=== PATIENT | male | born 1995 | race Caucasian/White ===

== ENCOUNTER 2019-08-20 08:33 | Emergency (ER) | payer OTHER ==
[2019-08-20] MEDS ORDERED: TETRACAINE HCL 0.5% OPH SOLN 0.6 ML DROPERETTE OU ONE (09:27)
--- NOTE | 2019-08-20 09:29 | ER Document Report ---
ED Medical Screen (RME) - General Chief Complaint: Eye Problem Stated Complaint: LOSS OF VISION Time Seen by Provider: 08/20/19 09:17 Mode of Arrival: Ambulatory Information source: Patient Notes: Patient presents complaining of left eye pain for the past 5 weeks. Patient reports some blurred vision. 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 Patient does wear contact lenses although states that he has not had them in for some time. I have greeted and performed a rapid initial assessment of this patient. A comprehensive ED assessment and evaluation of the patient, analysis of test results and completion of the medical decision making process will be conducted by additional ED providers. TRAVEL OUTSIDE OF THE [place] IN LAST 30 DAYS: No Past Medical History - Social History Frequency of alcohol use: Occasional Drug Abuse: None Physical Exam - Vital signs Vitals: Temp Pulse Resp BP Pulse Ox 98.2 F 68 16 124/75 98 08/20/19 08:49 08/20/19 08:49 08/20/19 08:49 08/20/19 08:49 08/20/19 08:49 - General Notes: Tearing, positive photophobia, sclera injected bilaterally Course - Vital Signs Vital signs: Temp Pulse Resp BP Pulse Ox 98.2 F 68 16 124/75 98 08/20/19 08:49 08/20/19 08:49 08/20/19 08:49 08/20/19 08:49 08/20/19 08:49
[2019-08-20] MEDS ORDERED: TETRACAINE HCL 0.5% OPH SOLN 4 ML OU ONE (09:44)
[2019-08-20] MEDS ORDERED: TOBRAMYCIN SULFATE/DEXAMETH OPH SUSP 2.5 ML OS ONE (12:07)
--- NOTE | 2019-08-20 12:20 | ER Document Report ---
ED General - General Chief Complaint: Eye Problem Stated Complaint: LOSS OF VISION Time Seen by Provider: 08/20/19 09:17 Mode of Arrival: Ambulatory TRAVEL OUTSIDE OF THE [place] IN LAST 30 DAYS: No - HPI Notes: Patient is a 23-year-old male presents emergency department for evaluation. He states his eyes have been red and hurting for the last 5 to 6 weeks. He was seen twice at [facility]. He never followed with ophthalmology or optometry. He states he was initially started on antibiotics. He is this for 2 weeks, then was removed for them and started on saline. He states that this morning he woke up and he could not see because of tearing from his left eye. He states that his eye tearing is improved throughout the course of the day. He states to me that he cannot open his eyes all of the way when he is laying down. He can when he is sitting up. The patient does work corrective lenses. He has not had his contacts in since this started. He does not have his glasses with him. He states that his eyes have itched, burnt, hurt, and have occasional stabbing pains in them. His pain is worsened by bright light, nothing seems to make it better. Past Medical History - General Information source: Patient - Social History Smoking Status: Current Every Day Smoker Frequency of alcohol use: Occasional Drug Abuse: None Family History: Reviewed & Not Pertinent Patient has suicidal ideation: No Patient has homicidal ideation: No Review of Systems - Review of Systems Constitutional: No symptoms reported EENT: See HPI Cardiovascular: No symptoms reported Respiratory: No symptoms reported Gastrointestinal: No symptoms reported Genitourinary: No symptoms reported Musculoskeletal: No symptoms reported Skin: No symptoms reported Neurological/Psychological: No symptoms reported Physical Exam - Vital signs Vitals: Temp Pulse Resp BP Pulse Ox 98.2 F 68 16 124/75 98 08/20/19 08:49 08/20/19 08:49 08/20/19 08:49 08/20/19 08:49 08/20/19 08:49 - Notes Notes: Vital signs reviewed, please refer to chart. Head is normocephalic, atraumatic. Pupils equal round, reactive to light. Neck is supple without meningismus. Heart is regular rate and rhythm. Lungs are clear to auscultation bilaterally. Abdomen is soft, nontender, normoactive bowel sounds throughout. Extremities without cyanosis, clubbing. Posterior calves are nontender. Peripheral pulses are equal. Skin is warm and dry. Patient is awake, alert, oriented x3. Cranial nerves II - XII are grossly intact without focal neurological deficits. Strength is plus 5 out of 5 bilateral upper and lower extremities. Sensation is intact. Reflexes symmetrical. Intact [id number], rapid alternating movements, [id number]. - HEENT Conjunctiva: Injected. No: Purulent discharge Extraocular movements intact: Yes Eyelashes: Normal Pupils: PERRL Corrective lenses worn: No - unable to perform exam. see note Right intraocular pressure: 16 mm Hg Left intraocular pressure: 15 mm Hg Lids everted for exam: bilateral: Normal Anterior chamber: Normal. No: Hyphema Fundascopic: Normal Course - Re-evaluation Re-evalutation: 08/20/19 12:19 Patient presents emergency department for evaluation. He is here for bilateral eye redness and left eye pain. He did not have his corrective lenses with him, visual acuity is not useful. After being administered tetracaine eyedrops, the patient was able to open his eyes. He states he still was only able to open them fpc when lying supine. I do not have a clear etiology for such as symptom. In any case, his funduscopic exam/slit-lamp exam was normal. His intraocular pressures are normal. He does not have any significant discharge. He does have significant conjunctival erythema, and was lamp exam reveals superficial abrasions over the left cornea, without signs of ulceration. At this point I will go ahead and treat him for the corneal abrasions. I suggested using an antihistamine [id number], as the itching could be secondary to allergic conjunctivitis. I will then send him on to ophthalmology/optometry for further evaluation. He is to return to the ED with worsening or new concerning symptoms of any sort. - Vital Signs Vital signs: Temp Pulse Resp BP Pulse Ox 98.2 F 68 16 124/75 98 08/20/19 08:49 08/20/19 08:49 08/20/19 08:49 08/20/19 08:49 08/20/19 08:49 Discharge - Discharge Clinical Impression: Allergic conjunctivitis of both eyes, Injury of conjunctiva and corneal abrasion of left eye w/o FB Condition: Stable Disposition: HOME, SELF-CARE Instructions: Antibiotic Therapy ([facility]), Conjunctivitis ([facility]), Eyedrop Use ([facility]) Additional Instructions: Apply 1 drop to left eye of antibiotic, every 6 hours while awake. Follow-up with the eye doctor on Thursday. Use [id number] antihistamines to attempt to relieve potential allergic conjunctivitis symptoms. Return to the ED with worsening or new concerning symptoms of any sort.
[2019-08-20 12:48] VITALS: BP 121/73
== END 2019-08-20 12:49 | disposition home or self-care (01) ==
LOC: ER 08:33
DX: S05.02XA Injury of conjunctiva and corneal abrasion without foreign body, left eye, initial encounter (principal); X58.XXXA Exposure to other specified factors, initial encounter; H10.13 Acute atopic conjunctivitis, bilateral; F17.200 Nicotine dependence, unspecified, uncomplicated
CPT/HCPCS: 99283; J3490 ×2